=== PATIENT | male | born 1960 | race African-American/Black ===

== ENCOUNTER 2024-01-12 15:31 | Inpatient (IN) | payer OTHER ==
[2024-01-12 14:39] VITALS: BMI 25.7
[2024-01-12] MEDS ORDERED: MAGNESIUM HYDROX 2400MG/30ML ORAL SUSPENSION 30 ML CUP PO PRN (17:35)
[2024-01-12] MEDS ORDERED: MAG HYDROX/AL HYDROX/SIMETH 30 ML UNIT-DOSE CUP PO PRN (17:35)
[2024-01-12] MEDS ORDERED: ONDANSETRON *ODT* 4 MG TABLET SL PRN (17:35)
[2024-01-12] MEDS ORDERED: BENZONATATE 200 MG CAPSULE PO PRN (17:35)
[2024-01-12] MEDS ORDERED: IBUPROFEN 400 MG TABLET (FP) PO PRN (17:35)
[2024-01-12] MEDS ORDERED: BISMUTH SUBSALICYLATE 524 MG/30 ML PO PRN (17:35)
[2024-01-12] MEDS ORDERED: POLYETHYLENE GLYCOL (HEALTHYLAX) 3350 17 GM PACKET PO PRN (17:35)
[2024-01-12] MEDS ORDERED: DICYCLOMINE HCL 10 MG CAPSULE PO PRN (17:35)
[2024-01-12] MEDS ORDERED: BENZOCAINE/MENTHOL (CHLORASEPTIC ) LOZENGE MM PRN (17:35)
[2024-01-12] MEDS ORDERED: IBUPROFEN 600 MG TABLET (FP) PO PRN (17:35)
[2024-01-12] MEDS ORDERED: LOPERAMIDE HCL 2 MG CAPSULE PO PRN (17:35)
[2024-01-12] MEDS ORDERED: NICOTINE POLACRILEX 2 MG GUM BUC PRN (17:35)
[2024-01-12] MEDS ORDERED: guaiFENesin 600 MG TABLET.ER (FP) PO PRN (17:35)
[2024-01-12] MEDS ORDERED: ACETAMINOPHEN 325 MG TABLET (FP) PO PRN (17:35)
[2024-01-12] MEDS ORDERED: NICOTINE POLACRILEX 2 MG LOZENGE BC PRN (17:35)
[2024-01-12] MEDS ORDERED: P-EPHED 60MG/TRIPROLIDI 2.5MG TABLET PO PRN (17:35)
[2024-01-12] MEDS: MELATONIN 5 MG TABLETS PO SCH (22:14)
[2024-01-12] MEDS: THIAMINE 100 MG TABLET PO SCH (22:14)
[2024-01-13 08:41] VITALS: RESP 18
[2024-01-13] MEDS: hydrOXYzine PAMOATE 25 MG CAPSULE (FP) PO PRN (09:22)
[2024-01-13] MEDS: METHOCARBAMOL 500 MG TABLET PO PRN (09:22)
[2024-01-13] MEDS: PRENATAL VITAMINS W/ FOLIC ACID TABLET (FP) PO SCH (09:22)
[2024-01-13] MEDS: FLUoxetine HCL 20 MG CAPSULE PO SCH (09:23)
[2024-01-13 12:26] VITALS: BP 126/74; PULSE 61; TEMP 98.4
[2024-01-13 13:54] LABS: HEMATOCRIT 38.8 % (35.4-49); HEMOGLOBIN 12.8 GM/dL (11.7-16.9); MCH 28.4 pg (25.7-33.7); MEAN CELL VOLUME 86.3 fl (80-96); PLATELET COUNT 212 10^3/uL (134-434); POTASSIUM 3.9 mmol/L (3.5-5.1); RDW 13.2 % (11.9-15.9); WHITE BLOOD COUNT 5.3 K/mm3 (4.0-10.0)
[2024-01-13 13:58] LABS: ALBUMIN 3.1 g/dl (3.4-5.0); BLOOD UREA NITROGEN 18.2 mg/dL (7-18); CALCIUM 8.3 mg/dL (8.5-10.1)
[2024-01-13 14:01] LABS: CREATININE 1.3 mg/dL (0.55-1.3)
[2024-01-13 14:02] LABS: BILIRUBIN,TOTAL 0.4 mg/dL (0.2-1)
[2024-01-13 14:03] LABS: TOT PROT 6.1 g/dl (6.4-8.2)
[2024-01-13] MEDS ORDERED: OLANZapine 10 MG TABLET PO SCH (22:00)
== END 2024-01-13 17:07 | disposition home or self-care (01) | DRG 775 ==
LOC: YASAS 15:31 → Y6N 18:23
PROVIDERS: ADMIT Allergy & Immunology; ATTEND Surgery
PROC: HZ2ZZZZ Detoxification Services for Substance Abuse Treatment (ICD-10-PCS; principal; 2024-01-12)
DX: F10.20 Alcohol dependence, uncomplicated (principal); F10.24 Alcohol dependence with alcohol-induced mood disorder; F17.210 Nicotine dependence, cigarettes, uncomplicated; F20.9 Schizophrenia, unspecified; F10.282 Alcohol dependence with alcohol-induced sleep disorder; F10.280 Alcohol dependence with alcohol-induced anxiety disorder; I10 Essential (primary) hypertension; Z86.11 Personal history of tuberculosis
CPT/HCPCS: 36415; 80053; 80305; 85027; 86593; 86780; 93005; 93010